=== PATIENT | female | born 1975 | race Two or more races ===

== ENCOUNTER 2020-06-21 11:00 | Inpatient (IN) | payer OTHER ==
[~2020-06-21] VITALS: Ht 165.1 cm; Wt 114.3 kg
[~2020-06-21 11:00] MED LIST: SYNTHROID150 MCG PO
[2020-06-26] MEDS ORDERED: KETO10TA2 PO (11:29)
[2020-06-26] MEDS ORDERED: NORFLEX100MG PO (11:30)
== END 2020-06-26 13:52 | disposition home or self-care (01) | DRG 330 ==
LOC: SURH 06-23 07:00 → O/R 06-23 10:00 → SURH 06-23 11:00 → O/R 06-23 11:00 → SURH 06-23 17:55
PROVIDERS: ADMIT Surgery; ATTEND Surgery
PROC: 07BB4ZX Excision of Mesenteric Lymphatic, Percutaneous Endoscopic Approach, Diagnostic (ICD-10-PCS; 2020-06-23)
PROC: 0UB14ZZ Excision of Left Ovary, Percutaneous Endoscopic Approach (ICD-10-PCS; 2020-06-23)
PROC: 0DJD8ZZ Inspection of Lower Intestinal Tract, Via Natural or Artificial Opening Endoscopic (ICD-10-PCS; 2020-06-23)
PROC: 0DTN4ZZ Resection of Sigmoid Colon, Percutaneous Endoscopic Approach (ICD-10-PCS; principal; 2020-06-23 07:00)
DX: K57.30 Diverticulosis of large intestine without perforation or abscess without bleeding (principal); K51.419 Inflammatory polyps of colon with unspecified complications; N83.02 Follicular cyst of left ovary; R59.0 Localized enlarged lymph nodes; E03.8 Other specified hypothyroidism; G47.33 Obstructive sleep apnea (adult) (pediatric); E66.01 Morbid (severe) obesity due to excess calories